=== PATIENT | female | born 1955 | race Caucasian/White ===

== ENCOUNTER 2024-05-04 14:13 | Emergency (ER) | payer OTHER ==
--- OUTSIDE RECORDS SUMMARY | 2024-05-04 14:17 | XMS REPORT | Continuity of Care Document ---
Author Name Unknown Address [address] [facility] [address] [place] [address] [facility] Address [address] [facility] [place] [address] Care Team Providers Care Customer Retention Representative Name Role Phone Reese [place] Attending Clinician Unavailable Jonathan Reagan Cardiology Attending Clinician Unavailable Physician, No Primary or Family Admitting Clinic lorenza Unavailable Payers Payer Name Policy Type Policy Number Effective Date Expirati on Date Source [facility] 6 [id number] 2023 00:00:00 [facility] MEDICARE [place] [id number] 2019 00:00:00 [facility] MEDICARE NOV[place]AS [id number] 2019 00:00:00 [facility] Problems Condition Name Condition Details Condition Category Status Onset Date Resolution Date Last Treatment Date Treating Clinician Comments Source [id number] Hyperlipid emia, unspecifie d hyperlipid emia type Problem Active [facility] Rotator cuff tear arthropath y Rotator cuff arthropath y Problem Active [facility] [id number] HTN, goal below 140/90 Problem Active [facility] [id number] Female bladder prolapse Problem Active [facility] [id number] Gastro-eso phageal reflux disease without esophagiti s Problem Active [facility] [id number] Hypoglycem ia Problem Active [facility] 54157899 Non-season al allergic rhinitis, unspecifie d trigger Problem Active [facility] [id number] Primary insomnia Problem Active [facility] [id number] Bilateral carpal tunnel syndrome Problem Active [facility] [id number] ISABELLA (generaliz ed anxiety disorder) Problem Active [facility] [id number] Primary osteoarthr itis of right knee Problem Active [facility] 37246303 Inappropri ately high serum insulin Problem Active [facility] [id number] Primary osteoarthr itis of left wrist Problem Active [facility] 817145736 Primary osteoarthr itis of right wrist Problem Active [facility] 49478619 Chronic obstructiv e pulmonary disease, unspecifie d COPD type Problem Active [facility] Allergies, Adverse Reactions, Alerts Allergy Name Allergy Type Status Severity Reaction(s) Onset Date Inactive Date Treating Clinician Comments Source amoxicil duane / clavulan ate amoxicil duane / clavulan ate Active diarrhea [facility] Codeine Codeine Active hot flashes, vomiting [facility] Social History Social Habit Start Date Stop Date Quantity Comments Source History of Tobacco Use [facility] Sex Assigned At [facility] Smoking Status Start Date Stop Date Source Former Smoker 2024-04-02 00:00:00 2024-04-02 00:00:00 [facility] Medications Ordered Medication Name Filled Medication Name Start Date Stop Date Current Medication? Ordering Clinician Indication Dosage Frequency Signature (SIG) Comments Components Source Hyalgan Hyalgan 03-29 00:00: 00 No 2mL [facility] BUPivacaine HCl BUPivacaine HCl 03-08 00:00: 00 No 4mL [facility] Kenalog (Triamcinol one) Kenalog (Triamcinol one) 1-06 00:00: 00 No 40mg [facility] Aspir-81 Aspir-81 No Aspir-81 Lisinopril- hydroCHLORO thiazide 10-12.5 MG Lisinopril- hydroCHLORO thiazide 10-12.5 MG No 1{table t} QD Lisinopril -hydroCHLO ROthiazide 10-12.5 MG Vital Signs Vital Name Observation Time Observation Value Comments S ource height 2024-03-29 14:15:00 65 [in_i] Commo n [facility] weight 2024-03-29 14:15:00 150.2 [lb_av] Co mmon [facility] temperature 2024-03-29 14:15:00 97.7 [degF] Com mon [facility] bmi 2024-03-29 14:15:00 24.99 kg/m2 Comm on [facility] blood pressure systolic 2024-03-29 14:15:00 124 mm[Hg] [facility] blood pressure diastolic 2024-03-29 14:15:00 76 mm[Hg] Common [facility] height 2024-03-22 14:15:00 65 [in_i] Commo n [facility] weight 2024-03-22 14:15:00 151 [lb_av] Comm on [facility] temperature 2024-03-22 14:15:00 98.4 [degF] Com mon [facility] bmi 2024-03-22 14:15:00 25.12 kg/m2 Comm on [facility] blood pressure systolic 2024-03-22 14:15:00 126 mm[Hg] [facility] blood pressure diastolic 2024-03-22 14:15:00 74 mm[Hg] [facility] height 2023-04-26 11:20:00 65 [in_i] Commo n [facility] weight 2023-04-26 11:20:00 147 [lb_av] Comm on [facility] bmi 2023-04-26 11:20:00 24.46 kg/m2 Comm on [facility] height 2022-12-09 11:20:00 65 [in_i] Commo n [facility] weight 2022-12-09 11:20:00 147.2 [lb_av] Co mmon [facility] temperature 2022-12-09 11:20:00 97.7 [degF] Com [facility] bmi 2022-12-09 11:20:00 24.49 kg/m2 Comm on [facility] oximetry 2022-12-09 11:20:00 96 % Commo n [facility] respiratory rate 2022-12-09 11:20:00 17 /min Common [facility] blood pressure systolic 2022-12-09 11:20:00 135 mm[Hg] [facility] blood pressure diastolic 2022-12-09 11:20:00 75 mm[Hg] Common [facility] height 2022-10-01 08:20:00 65 [in_i] Commo n [facility] weight 2022-10-01 08:20:00 149.0 [lb_av] Co mmon [facility] temperature 2022-10-01 08:20:00 96.5 [degF] Com [facility] bmi 2022-10-01 08:20:00 24.79 kg/m2 Comm on [facility] oximetry 2022-10-01 08:20:00 99 % Commo n [facility] respiratory rate 2022-10-01 08:20:00 18 /min Common [facility] blood pressure systolic 2022-10-01 08:20:00 127 mm[Hg] Common [facility] blood pressure diastolic 2022-10-01 08:20:00 69 mm[Hg] [facility] height 2022-03-10 13:00:00 65 [in_i] Commo n [facility] weight 2022-03-10 13:00:00 141 [lb_av] Comm on [facility] temperature 2022-03-10 13:00:00 97.5 [degF] Com mon [facility] bmi 2022-03-10 13:00:00 23.46 kg/m2 Comm on [facility] oximetry 2022-03-10 13:00:00 99 % Commo n [facility] respiratory rate 2022-03-10 13:00:00 16 /min [facility] blood pressure systolic 2022-03-10 13:00:00 132 mm[Hg] [facility] blood pressure diastolic 2022-03-10 13:00:00 74 mm[Hg] [facility] height 2022-03-10 13:00:00 65 [in_i] Commo n [facility] weight 2022-03-10 13:00:00 141 [lb_av] Comm on [facility] temperature 2022-03-10 13:00:00 97.5 [degF] Com [facility] bmi 2022-03-10 13:00:00 23.46 kg/m2 Comm on [facility] oximetry 2022-03-10 13:00:00 99 % Commo n [facility] respiratory rate 2022-03-10 13:00:00 16 /min [facility] blood pressure systolic 2022-03-10 13:00:00 132 mm[Hg] Common [facility] blood pressure diastolic 2022-03-10 13:00:00 74 mm[Hg] [facility] height 2021-08-27 14:00:00 65 [in_i] Commo n [facility] weight 2021-08-27 14:00:00 146.1 [lb_av] Co mmon [facility] temperature 2021-08-27 14:00:00 97.6 [degF] Com mon [facility] bmi 2021-08-27 14:00:00 24.31 kg/m2 Comm on [facility] oximetry 2021-08-27 14:00:00 97 % Commo n [facility] respiratory rate 2021-08-27 14:00:00 17 /min [facility] blood pressure systolic 2021-08-27 14:00:00 130 mm[Hg] [facility] blood pressure diastolic 2021-08-27 14:00:00 79 mm[Hg] [facility] Encounters Start Date/Time End Date/Time Encounter Type Admission Type Attending [facility] Care Facility Care Department Encounter ID Source 2024-03-08 13:24:00 Outpatient [place] [facility] [id number] [facility] 2024-02-13 14:06:00 Outpatient [facility] [id number] [facility] 2023-06-28 13:35:00 Outpatient [place], Reese [facility] [id number] [facility] 2023-04-26 11:22:00 Outpatient [place], Reese [facility] [id number] [facility] 2022-09-29 09:40:01 Outpatient [place], Reese [facility] [id number] [facility] 2022-03-10 15:04:00 Outpatient [place], Reese [facility] ST[facility] [id number] [facility] 2021-11-10 13:28:00 Outpatient [place], Reese [facility] [id number] [facility] 2021-09-16 13:27:44 Outpatient [place], Reese [facility] [id number] [facility] 2021-09-16 13:25:02 Outpatient [place], Reese [facility] ST[facility] [id number] [facility] 2021-09-16 12:37:46 Outpatient [place], Reese [facility] [id number] [facility] 2021-09-16 11:59:52 Outpatient [place], Reese [facility] [id number] [facility] 2021-09-16 11:27:24 Outpatient [place], Reese [facility] [id number] [facility] 2021-09-16 11:26:28 Outpatient [place], Reese [facility] [id number] [facility] 2021-09-16 11:22:24 Outpatient [place], Reese [facility] [id number] [facility] 2021-09-16 11:22:21 Outpatient [place], Reese [facility] [id number] [facility] 2021-09-16 11:14:53 Outpatient [place], Reese [facility] [id number] [facility] 2021-09-16 11:14:47 Outpatient [place], Reese [facility] [id number] [facility] 2024-04-18 12:37:00 2024-04-18 12:37:00 Outpatient Jonathan Maldonado [facility] [id number] [facility] 2024-03-29 00:00:00 2024-03-29 00:00:00 (IN/ASP) INJ ASP [facility]C [facility] [id number] [facility] 2024-03-22 00:00:00 2024-03-22 00:00:00 (IN/ASP) INJ ASP [facility]LMLC [facility]C [id number] [facility] 2023-09-19 00:00:00 2023-09-19 00:00:00 (TEL) STLMLC STL[facility]C [id number] [facility] 2023-06-13 00:00:00 2023-06-13 00:00:00 (TEL) STLMLC STL[facility]C [id number] [facility] 2023-04-26 00:00:00 2023-04-26 00:00:00 OFFICE VISIT ESTAB PT LEVEL 3 [facility]LMLC STL[facility]C [id number] [facility] 2023-04-26 00:00:00 2023-04-26 00:00:00 (TEL) STLMLC STLMLC [id number] [facility] 2022-12-16 00:00:00 2022-12-16 00:00:00 (TEL) STLMLC STLMLC [id number] [facility] 2022-12-09 00:00:00 2022-12-09 00:00:00 (TEL) STLMLC STLMLC [id number] [facility] 2022-12-09 00:00:00 2022-12-09 00:00:00 OFFICE VISIT ESTAB PT LEVEL 3 [facility]C STL[facility]C [id number] [facility] 2022-10-01 00:00:00 2022-10-01 00:00:00 OFFICE VISIT ESTAB PT LEVEL 4 [facility]C STL[facility]C [id number] [facility] 2022-03-11 00:00:00 2022-03-11 00:00:00 (TEL) STLMLC STLMLC [id number] [facility] 2022-03-10 00:00:00 2022-03-10 00:00:00 OFFICE VISIT ESTAB PT LEVEL 4 STLMLC STLMLC [id number] [facility] 2022-03-10 00:00:00 2022-03-10 00:00:00 (TEL) STLMLC STLMLC [id number] [facility] 2022-03-10 00:00:00 2022-03-10 00:00:00 SUB ANNUAL [facility] VISIT STLMLC STLMLC [id number] [facility] 2022-02-15 00:00:00 2022-02-15 00:00:00 (TEL) STLMLC STLMLC [id number] [facility] 2021-11-10 00:00:00 2021-11-10 00:00:00 (TEL) STLMLC STLMLC [id number] [facility] 2021-11-10 00:00:00 2021-11-10 00:00:00 (TEL) STLMLC STLMLC [id number] [facility] 2021-09-14 00:00:00 2021-09-14 00:00:00 (TEL) STLMLC STLMLC [id number] [facility] 2021-08-31 00:00:00 2021-08-31 00:00:00 (TEL) STLMLC STLMLC [id number] [facility] 2021-08-27 00:00:00 2021-08-27 00:00:00 (TEL) STLMLC STLMLC [id number] [facility] 2021-08-27 00:00:00 2021-08-27 00:00:00 OFFICE VISIT ESTAB PT LEVEL 2 STLMLC STLMLC [id number] [facility] 2021-08-27 00:00:00 2021-08-27 00:00:00 (TEL) STLMLC STLMLC [id number] [facility] 2021-06-19 00:00:00 2021-06-19 00:00:00 (TEL) STLMLC STLMLC [id number] [facility] 2021-04-07 00:00:00 2021-04-07 00:00:00 (TEL) STLMLC STLMLC [id number] [facility] 2021-03-10 00:00:00 2021-03-10 00:00:00 Outpatient [facility]C [facility] [id number] [facility] 2021-03-10 00:00:00 2021-03-10 00:00:00 Outpatient [facility]C [facility] [id number] [facility] 2021-03-02 00:00:00 2021-03-02 00:00:00 Outpatient [facility]C [facility]C [id number] [facility] 2020-10-28 00:00:00 2020-10-28 00:00:00 Outpatient [facility]C [facility]C [id number] [facility] 2020-06-18 00:00:00 2020-06-18 00:00:00 Outpatient STL[facility]C [facility]C [id number] [facility] 2020-05-19 00:00:00 2020-05-19 00:00:00 Outpatient ST[facility]C [facility]C [id number] [facility] 2020-05-09 11:37:00 2020-05-09 11:37:00 [facility] [id number] [facility] 2020-04-11 09:45:00 2020-04-11 09:45:00 [facility] [id number] [facility] 2020-03-21 14:08:00 2020-03-21 14:08:00 [facility] [id number] [facility] 2020-03-20 15:47:00 2020-03-20 15:47:[address] [facility] [id number] [facility] 2020-02-06 09:15:00 2020-02-06 09:15:[address] [facility] [id number] [facility] 2020-02-05 09:30:00 2020-02-05 09:30:00 [facility] [id number] [facility] 2020-01-08 10:00:00 2020-01-08 10:00:00 [facility] [id number] [facility] 2020-01-08 09:30:00 2020-01-08 09:30:[address] [facility] [address] [facility] [id number] [facility] 2019-11-09 08:30:00 2019-11-09 08:30:[address] [facility] [address] [facility] [id number] [facility] 2019-11-08 13:38:00 2019-11-08 13:38:[address] [facility] [address] [facility] [id number] [facility] Results Test Description Test Time Test Comments Results Result Co mments Source POC, COVID 19 [facility] ViewShould Right 2 View
--- NOTE | 2024-05-04 14:56 | RAD REPORT ---
EXAMINATION: ONE VIEW CHEST XR CLINICAL INDICATION: Female, 68 years old. Chest pain. TECHNIQUE: 1 View, AP supine, X-ray of the chest was performed. [id number]. COMPARISON: No prior exam. FINDINGS: Lungs and pleura: Clear lungs. No effusion. Heart and mediastinum: Normal heart size. Unremarkable mediastinal contours. Osseous structures: No acute abnormality. Tubes/lines: None Other: None. IMPRESSION: No acute intrathoracic abnormality.
[2024-05-04 15:08] LABS: Protime INR 1.07
[2024-05-04 15:15] LABS: Anion Gap 12.2 mEq/L (5.0-15.0); Potassium 3.2 mEq/L (3.5-5.1); Troponin High Sensitivity 6.3 pg/mL (<58.9)
[2024-05-04 15:22] LABS: Absolute Eosinophils 0.2 K/uL (0-0.5); Absolute Lymphocytes (CBC) 1.3 K/uL (0.7-4.9); Absolute Monocytes 0.3 K/uL (0.1-1.3); Absolute Neutrophil 5.6 K/uL (1.8-8.0); Basophils % 0.5 % (0-1.3); Eosinophils % 3.1 % (0-4.4); Hematocrit 39.5 % (36.0-45.0); Hemoglobin 13.5 g/dL (12.0-15.0); Lymphocytes % 17.2 % (15.3-44.8); MCH 29.4 pg (27.0-35.0); MCHC 34.1 g/dL (32.0-36.0); MCV 86.1 fL (80-100); MPV 9.1 fL (7.6-11.3); Monocytes % 3.8 % (3.3-12.3); Neutrophils % 75.4 % (41.7-73.7); Platelets 204 thou/uL (152-406); RBC Red Blood Cell Count 4.59 M/uL (3.86-4.86); Red Cell Distribution Width 13.5 % (12.1-15.2)
[2024-05-04] MEDS ORDERED: POTASSIUM CL SA 10 MEQ TAB PO ONE (16:33)
[2024-05-04] MEDS ORDERED: KCL 20 MEQ/100 mL IVPB 100 ML IV ONE (16:33)
[2024-05-04] MEDS ORDERED: NA CHLORIDE 0.9% 500 ML ONE (17:18)
--- NOTE | 2024-05-04 17:31 | EDPHYS ---
Physician Documentation [facility] Name: Thelma Rebolledo Age: 68 yrs Sex: Female : 1955 Arrival Date: 05/04/2024 Time: 14:13 Bed 2 Private MD: ED Physician Abel Barillas HPI: 05/04 14:25 This 68 yrs old Female presents to ER via EMS with complaints of ec2 Palpitations, Shortness Of Breath, Chest Tightness. 14:25 Patient arrives today for evaluation of palpitations, shortness of breath, chest ec2 tightness. Patient reports that she has been experiencing this for several days and worsened today. Patient reports at baseline difficulty breathing. Patient reports history of hypertension and hyperlipidemia.. Historical: - Allergies: 14:24 Codeine; hb - Home Meds: 14:24 lisinopril-hydrochlorothiazide 10-12.5 mg oral tablet daily [Active]; rosuvastatin 5 mg hb oral tablet 3x/week [Active]; aspirin 81 mg Oral tablet,chewable [Active]; Vitamin D3 oral [Active]; Magnesium Oxide Oral [Active]; vitamin K2 oral [Active]; Zinc Sulfate Oral [Active]; Vitamin C Oral [Active]; - PMHx: 14:24 Hypertension; hb - PSHx: 14:24 Appendectomy; hb - Immunization history:: Adult Immunizations up to date. - Infectious Disease History:: Denies. - Social history:: Smoking status: Patient denies any tobacco usage or history of. ROS: 14:26 Constitutional: as per hpi ec2 Exam: 14:26 Constitutional: GEN: NAD Head: atraumatic Eyes: EOMI Ears: External ears are ec2 normal. CV: regular rate LUNGS: no respiratory distress ABD: non-distended SKIN: no evidence of rashes MSK: no evidence of trauma Vital Signs: 14:22 BP 165 / 86; Pulse 93; Resp 14; Temp 97.9(TE); Pulse Ox 99% on R/A; Weight 65.77 kg; hb Height 5 ft. 3 in. ; Pain 0/10; 16:47 BP 148 / 71; Pulse 73; Pulse Ox 99% on R/A; Pain 0/10; tm6 17:09 BP 130 / 70; Pulse 74; ec2 17:55 BP 144 / 77; Pulse 70; Resp 17; Pulse Ox 99% ; rs5 14:22 Body Mass Index 25.69 (65.77 kg, 160.02 cm) hb 14:22 Pain Scale: Adult hb 16:47 Pain Scale: Adult tm6 MDM: 14:26 Data reviewed: vital signs. ED course: Patient arrives today for evaluation of ec2 palpitations and as well as chest tightness. Examination remarkable for well-appearing nontoxic individuals otherwise in no acute distress. History gathered by EMS, no additional interventions given. Will obtain lab work, EKG, chest x-ray. Differential includes arrhythmia, electrolyte disturbances, anemia, ACS. Additionally considering PE. . 14:31 Patient medically screened. ec2 14:38 ED course: EKG independently reviewed and interpreted by me, shows normal sinus rhythm, ec2 rate of 74, no acute ST segment elevations, intervals are nonconcerning. . 15:29 ED course: Metabolic profile shows slight hypokalemia with potassium of 3.2. CBC is ec2 reassuring. Troponin within normal ranges, D-dimer within normal ranges. Will obtain repeat EKG and troponin at the 2-hour raymon. Will give the patient potassium as well. . 16:52 ED course: ED repeat EKG independently reviewed and interpreted by me, shows normal ec2 sinus rhythm, rate 71, no acute ST segment elevations, intervals nonconcerning. When compared to initial EKG, appears grossly unchanged. . 17:30 ED course: Repeat troponin without marked change. Will discharge home. Return ec2 precautions given. Instructed to follow-up with peg driver.. 05/04 14:16 Order name: Basic Metabolic Panel; Complete Time: 15:29 ec2 05/04 14:16 Order name: CBC with Diff; Complete Time: 15:29 ec2 05/04 14:16 Order name: NT PRO-BNP; Complete Time: 15:29 ec2 05/04 14:16 Order name: PT-INR; Complete Time: 15:14 ec2 05/04 14:16 Order name: Troponin HS; Complete Time: 15:29 ec2 05/04 14:26 Order name: D-Dimer; Complete Time: 15:29 ec2 05/04 16:42 Order name: Troponin High Sensitivity; Complete Time: 17:30 rs5 05/04 14:16 Order name: XRAY Chest (1 view); Complete Time: 15:14 ec2 05/04 14:16 Order name: EKG; Complete Time: 14:17 ec2 05/04 14:16 Order name: Cardiac monitoring; Complete Time: 15:38 ec2 05/04 14:16 Order name: EKG - Nurse/Tech; Complete Time: 15:38 ec2 05/04 14:16 Order name: IV Saline Lock; Complete Time: 15:38 ec2 05/04 14:16 Order name: Labs collected and sent; Complete Time: 15:38 ec2 05/04 14:16 Order name: O2 Per Protocol; Complete Time: 15:38 ec2 05/04 14:16 Order name: O2 Sat Monitoring; Complete Time: 15:38 ec2 05/04 15:30 Order name: Misc. Order: repeat ekg/trop at 1630; Complete Time: 16:54 ec2 Administered Medications: 15:48 Drug: Potassium Chloride PO 40 mEq PO once Route: PO; rs5 17:01 Follow up: Response: No adverse reaction rs5 15:49 Drug: Potassium Chloride IV 20 mEq IV at calculated rate once; administer over 1-2 rs5 hours Route: IV; Rate: calculated rate; Site: left antecubital; 17:01 Follow up: IV Status: Completed infusion rs5 Disposition Summary: 05/04/24 17:31 Discharge Ordered Notes: Location: Home ec2 Condition: Stable ec2 Diagnosis - Chest pain, unspecified ec2 - Palpitations ec2 - Hypokalemia ec2 Followup: ec2 - With: Private Physician - When: - Reason: Re-evaluation by your physician Discharge Instructions: - Discharge Summary Sheet ec2 - Potassium Content of Foods ec2 - Nonspecific Chest Pain, Adult, [id number] ec2 Forms: - Medication Reconciliation Form ec2 - Antibiotic Education ec2 - Prescription Opioid Use ec2 - Patient Portal Instructions ec2 - Leadership Thank You Letter ec2 Signatures: Dispatcher [employer] EDJoanna Rhodes, LEANDER RN Michael Parson RN RN rs5 Abel Barillas MD MD ec2 Corrections: (The following items were deleted from the chart) 14:28 14:24 Home Meds: K2; hb hb 16:43 16:43 Troponin High Sensitivity+C.LAB.BRZ ordered. EDCO EDMS 16:53 16:52 ED course: ED repeat EKG independently reviewed and interpreted by me, shows ec2 normal sinus rhythm, rate 71, no acute ST segment elevations, otherwise nonconcerning. When compared to initial EKG, appears grossly unchanged. . ec2
--- NOTE | 2024-05-04 17:31 | ER ---
Nurse's Notes [facility] Name: Thelma Rebolledo Age: 68 yrs Sex: Female : 1955 Arrival Date: 05/04/2024 Time: 14:13 Bed 2 Private MD: Diagnosis: Chest pain, unspecified;Palpitations;Hypokalemia Presentation: 05/04 14:22 Chief complaint: EMS states: Palpitations since this morning, intermittent chest hb tightness that radiates to left neck and arm and increased SOB x 2-3 days. Coronavirus screen: At this time, the client does not indicate any symptoms associated with coronavirus-19. Ebola Screen: No symptoms or risks identified at this time. Initial Sepsis Screen: Does the patient meet any 2 criteria? No. Patient's initial sepsis screen is negative. Does the patient have a suspected source of infection? No. Patient's initial sepsis screen is negative. Risk Assessment: Do you want to hurt yourself or someone else? Patient reports no desire to harm self or others. Onset of symptoms was May 02, 2024. 14:22 Method Of Arrival: EMS: [facility] hb 14:22 Acuity: GELA 3 hb 14:29 Care prior to arrival: IV initiated. 20 GA, in the left forearm, NS 250 ml. hb Triage Assessment: 14:23 General: Appears in no apparent distress. Behavior is calm, cooperative. Pain: Pain hb currently is 0 out of 10 on a pain scale. at worst was 5 out of 10 on a pain scale. Neuro: GCS 15. Cardiovascular: Reports palpitations, Patient's skin is warm and dry. Rhythm is sinus tachycardia. Respiratory: Reports shortness of breath at rest on exertion Respiratory effort is even, unlabored, Respiratory pattern is regular, symmetrical. Historical: - Allergies: 14:24 Codeine; hb - Home Meds: 14:24 lisinopril-hydrochlorothiazide 10-12.5 mg oral tablet daily [Active]; rosuvastatin 5 mg hb oral tablet 3x/week [Active]; aspirin 81 mg Oral tablet,chewable [Active]; Vitamin D3 oral [Active]; Magnesium Oxide Oral [Active]; vitamin K2 oral [Active]; Zinc Sulfate Oral [Active]; Vitamin C Oral [Active]; - PMHx: 14:24 Hypertension; hb - PSHx: 14:24 Appendectomy; hb - Immunization history:: Adult Immunizations up to date. - Infectious Disease History:: Denies. - Social history:: Smoking status: Patient denies any tobacco usage or history of. Screenin:25 [facility] ED Fall Risk Assessment (Adult) History of falling in the last 3 months, tm6 including since admission No falls in past 3 months (0 pts) Confusion or Disorientation No (0 pts) Intoxicated or Sedated No (0 pts) Impaired Gait No (0 pts) Mobility Assist Device Used No (0 pt) Altered Elimination No (0 pt) Score/Fall Risk Level 0 - 2 = Low Risk Oriented to surroundings, Maintained a safe environment, Educated pt \T\ family on fall prevention, incl call for assistance when getting out of bed. Abuse screen: Denies threats or abuse. Denies injuries from another. Nutritional screening: No deficits noted. Tuberculosis screening: No symptoms or risk factors identified. Assessment: 14:25 General: Appears in no apparent distress. Behavior is calm, cooperative. Pain: tm6 Complains of pain in chest and left arm. Neuro: Level of Consciousness is awake, alert, obeys commands, Oriented to person, place, time, situation. Cardiovascular: Reports chest pain, Patient's skin is warm and dry. Respiratory: Reports shortness of breath since x2 days Airway is patent Respiratory effort is even, unlabored, Respiratory pattern is regular, symmetrical. GI: No signs and/or symptoms were reported involving the gastrointestinal system. Abdomen is flat, non-distended. : No signs and/or symptoms were reported regarding the genitourinary system. EENT: No signs and/or symptoms were reported regarding the EENT system. Derm: No signs and/or symptoms reported regarding the dermatologic system. Musculoskeletal: No signs and/or symptoms reported regarding the musculoskeletal system. 16:48 Reassessment: Patient appears in no apparent distress at this time. Patient and/or tm6 family updated on plan of care and expected duration. Pain level reassessed. Patient is alert, oriented x 3, equal unlabored respirations, skin warm/dry/pink. 18:01 Reassessment: No changes from previously documented assessment. rs5 Vital Signs: 14:22 BP 165 / 86; Pulse 93; Resp 14; Temp 97.9(TE); Pulse Ox 99% on R/A; Weight 65.77 kg; hb Height 5 ft. 3 in. ; Pain 0/10; 16:47 BP 148 / 71; Pulse 73; Pulse Ox 99% on R/A; Pain 0/10; tm6 17:09 BP 130 / 70; Pulse 74; ec2 17:55 BP 144 / 77; Pulse 70; Resp 17; Pulse Ox 99% ; rs5 14:22 Body Mass Index 25.69 (65.77 kg, 160.02 cm) hb 14:22 Pain Scale: Adult hb 16:47 Pain Scale: Adult tm6 ED Course: 14:14 Patient arrived in ED. ec2 14:15 Abel Barillas MD is Attending Physician. ec2 14:24 Triage completed. hb 14:25 Patient has correct armband on for positive identification. Placed in gown. Bed in low tm6 position. Call light in reach. Side rails up X 1. Provided Education on: use of call cortes. Client placed on continuous cardiac and pulse oximetry monitoring. NIBP monitoring applied. senior tax manager on. Pulse ox on. NIBP on. Door closed. Noise minimized. Warm blanket given. Pillow given. 14:25 Maintain EMS IV. Dressing intact. Good blood return noted. Site clean \T\ dry. Gauge \T\ tm 6 site: 18g LFA. Flushed with 10 mL NS. 14:28 Arm band placed on. hb 14:29 Michael Parson, RN is Primary Nurse. rs5 14:44 XRAY Chest (1 view) In Process Unspecified. EDMS 16:47 Patient maintains SpO2 saturation greater than 95% on room air. tm6 17:20 No provider procedures requiring assistance completed. rs5 18:05 IV discontinued, intact, bleeding controlled, No redness/swelling at site. Pressure rs5 dressing applied. Administered Medications: 15:48 Drug: Potassium Chloride PO 40 mEq PO once Route: PO; rs5 17:01 Follow up: Response: No adverse reaction rs5 15:49 Drug: Potassium Chloride IV 20 mEq IV at calculated rate once; administer over 1-2 rs5 hours Route: IV; Rate: calculated rate; Site: left antecubital; 17:01 Follow up: IV Status: Completed infusion rs5 Medication: 14:25 VIS not applicable for this client. tm6 Outcome: 17:31 Discharge ordered by . ec2 18:05 Discharged to home ambulatory, rs5 18:05 Condition: stable rs5 18:05 Discharge instructions given to patient, family, Instructed on discharge instructions, follow up and referral plans. Demonstrated understanding of instructions, follow-up care, 18:07 Patient left the ED. rs5 Signatures: Dispatcher [employer] EDJoanna Rhodes RN RN hb Michael Parson RN RN rs5 Abel Barillas MD MD ec2 Dominique Rodriguez RN RN tm6 Corrections: (The following items were deleted from the chart) 14:28 14:24 Home Meds: K2; hb hb
[2024-05-04 18:14] VITALS: TEMP 97.9; O2SAT 99
[2024-05-04 18:17] VITALS: BP 130/70
--- NOTE | 2024-05-07 12:56 | EKG ---
Test Date: 2024-05-04 Test Time: 16:48:48 Head Of Business Development: TANYA MEASUREMENT RESULTS: Intervals: Rate: 71 WI: 154 QRSD: 90 QT: 434 QTc: 471 [place]: P: 62 WI: 154 QRS: 48 T: 39 INTERPRETIVE STATEMENTS: Normal sinus rhythm Normal ECG Compared to ECG 05/04/2024 14:36:04 No significant changes Electronically Signed On 05-07-24 12:49:14 CDT by Scar Taylor
--- NOTE | 2024-05-07 12:57 | EKG ---
Test Date: 2024-05-04 Test Time: 14:36:04 Oil Heaterman: TANYA MEASUREMENT RESULTS: Intervals: Rate: 74 KS: 160 QRSD: 100 QT: 416 QTc: 461 [place]: P: 63 KS: 160 QRS: 52 T: 44 INTERPRETIVE STATEMENTS: Normal sinus rhythm Normal ECG No previous ECG available for comparison Electronically Signed On 05-07-24 12:49:22 CDT by Scar Taylor
== END 2024-05-04 18:07 | disposition home or self-care (01) ==
LOC: ER 14:13
DX: R07.9 Chest pain, unspecified (principal); E87.6 Hypokalemia; R00.2 Palpitations; I10 Essential (primary) hypertension; Z79.82 Long term (current) use of aspirin
CPT/HCPCS: 96365; 93005 ×2; 85025; 80048; 36415; 85610; 85379; 84484 ×2; 83880; 71045; 99285; J3480; J7040